=== PATIENT | female | born 1975 | race American Indian/Alaskan Native ===

== ENCOUNTER 2016-12-16 18:13 | Emergency (ER) | payer SELFPAY ==
[2016-12-16] MEDS ORDERED: XYLOCAINE 2% INFILTRATI ONE ×2 (21:04→21:06)
[2016-12-16] MEDS ORDERED: TRIPLE ANTIBIOTIC TP ONE ×2 (21:04→21:06)
[2016-12-16] MEDS ORDERED: TORADOL ONE (21:05)
[2016-12-16] MEDS ORDERED: TORADOL IM ONE (21:06)
--- NOTE | 2016-12-16 21:06 | Emergency Department Report ---
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 Patient states moderate bleeding after incident. Bleeding is controlled. Patient states last tetanus was 1998. She denies any fevers chills nausea vomiting or any other problems. ED Review of Systems ROS: Stated complaint: FINGER LAC Other details as noted in HPI Constitutional: denies: chills, fever Eyes: denies: eye pain, eye discharge, vision change ENT: denies: ear pain, throat pain Respiratory: denies: cough, shortness of breath, wheezing Cardiovascular: denies: chest pain, palpitations Endocrine: no symptoms reported Gastrointestinal: denies: abdominal pain, nausea, diarrhea Genitourinary: denies: urgency, dysuria, discharge Musculoskeletal: denies: back pain, joint swelling, arthralgia Skin: denies: rash, lesions Neurological: denies: headache, weakness, paresthesias Psychiatric: denies: anxiety, depression Hematological/Lymphatic: denies: easy bleeding, easy bruising ED Past Medical Hx - Past Medical History Hx Diabetes: Yes - Surgical History Additional Surgical History: C SECTION X2 TUBAL LIGTATION - Social History Smoking Status: Never Smoker Substance Use Type: None - Medications Home Medications: Home Medications Medication Instructions Recorded Confirmed Last Taken Type Ibuprofen [Motrin] 600 mg PO Q8H PRN #30 tablet 12/16/16 Unknown Rx Neomycn/Baci Zn/Pmyx Bs/Pramox 1 applic TP BID #1 tube 12/16/16 Unknown Rx [Triple Antibiotic Plus Ointmnt] Laceration Physical Exam - Exam General: Vital signs noted. No distress. Alert and acting appropriately. Laceration Location: Upper Extremity (Finger) Full Body Front + Back: 1 - partially avulsed cut on finger Laceration Exam: Yes Normal Distal CMS, No Foreign Body, No Exposed Tendon, Vessel, or Nerve, No Tendon Injury ED Course Vital Signs 12/16/16 18:26 Temperature 98.8 F Pulse Rate 79 Respiratory 18 Rate Blood Pressure 117/79 O2 Sat by Pulse 100 Oximetry ED Medical Decision Making - Medical Decision Making 41-year-old female who presents with superficial finger laceration ED course: Patient received a tetanus booster, Toradol for pain Finger laceration involved an avulsion of part of the nail. Wound was cleaned sterilely with sterile water wound was wrapped in dressing is triple antibiotic and sterilely dressed. Discussed patient to follow up with primary care physician in 5-7 days. Discussed the follow acute wound care keep wound dry. There was no need for laceration repair as it was partially avulsed nail with some of the skin taken off. Vital signs are normal patient is in no acute distress Discussed home medication of Motrin as well as she will anybody for application to cut a daily Critical care attestation.: If time is entered above; I have spent that time in minutes in the direct care of this critically ill patient, excluding procedure time. ED Disposition Clinical Impression: Finger laceration Qualifiers: Encounter type: initial encounter Finger: little finger Damage to nail status: with damage Foreign body presence: without foreign body Laterality: left Qualified Code(s): S61.317A - Laceration without foreign body of left little finger with damage to nail, initial encounter Disposition: - TO HOME OR SELFCARE Is pt being admited?: No Does the pt Need Aspirin: No Condition: Stable Instructions: Finger Laceration (ED), Acute Wound Care (ED) Prescriptions: Ibuprofen [Motrin] 600 mg PO Q8H PRN #30 tablet PRN Reason: Pain Neomycn/Baci Zn/Pmyx Bs/Pramox [Triple Antibiotic Plus Ointmnt] 1 applic TP BID #1 tube Referrals: PRIMARY CARE, [Primary Care Provider] - 3-5 Days [facility] [Outside] - 3-[address] [facility] [Outside] - 3-5 Days Forms: Accompanied Note, Work/School Release Form(ED) Time of Disposition: 21:31
[2016-12-16] MEDS ORDERED: BOOSTRIX IM ONE (21:09)
[2016-12-16 21:58] VITALS: BP 126/84
== END 2016-12-16 22:03 | disposition home or self-care (01) ==
LOC: ED 18:13
DX: S61.317A Laceration without foreign body of left little finger with damage to nail, initial encounter (principal); E11.9 Type 2 diabetes mellitus without complications; W45.8XXA Other foreign body or object entering through skin, initial encounter; Y93.9 Activity, unspecified; Y92.9 Unspecified place or not applicable; Y99.9 Unspecified external cause status
CPT/HCPCS: 90471; 90715; 96372; 99283; J1885; A6250